=== PATIENT | female | born 1975 | race Caucasian/White ===

== ENCOUNTER 2016-12-25 06:15 | Inpatient (IN) | payer OTHER ==
[2016-12-25] MEDS ORDERED: AMPICILLIN SODIUM 2 GM in NS 100 ML IV ONE (06:22)
[2016-12-25] MEDS ORDERED: OXYTOCIN/RINGERS LACTATE 1,000 ML IV PRN (06:22)
[2016-12-25] MEDS ORDERED: IBUPROFEN 600 MG TAB PO PRN (06:22)
[2016-12-25] MEDS ORDERED: TERBUTALINE SULFATE 1 MG/ML VIAL IV PRN (06:22)
[2016-12-25 07:07] LABS: ABSOLUTE IMMATURE GRANULOCYTES 0.09 10^3/uL (0.00-0.10); ADD DIFF? NO; ADD MORPH? NO; ADD SCAN? NO; ATYPICAL LYMPHOCYTE FLAG 0 (0-99); FRAGMENT RBC FLAG 0 (0-99); HEMOGLOBIN 12.2 g/dL (12.6-16.3); LEFT SHIFT FLG 0 (0-99); LIPEMIA HEMOLYSIS FLAG 90 (0-99); MEAN CELL HEMOGLOBIN 31.4 pg (27.9-34.1); MEAN CELL HEMOGLOBIN CONCENTR. 33.9 g/dL (32.4-36.7); MEAN CELL VOLUME 92.5 fL (81.5-99.8); MEAN PLATELET VOLUME 10.9 fL (8.7-11.7); PLATELET CLUMPS FLAG 0 (0-99); PLATELET COUNT 187 10^3/uL (150-400); RED BLOOD CELL COUNT 3.89 10^6/uL (4.18-5.33); RED CELL DISTRIBUTION WIDTH 13.8 % (11.5-15.2)
[2016-12-25] MEDS ORDERED: LIDOCAINE 1% 30 ML SDV ONE (07:19)
[2016-12-25] MEDS ORDERED: OXYTOCIN 10 UNIT/ML VIAL ONE (07:20)
[2016-12-25] MEDS ORDERED: AMMONIA AROMATIC 1 EACH AMP IH ONE (07:20)
[2016-12-25] MEDS ORDERED: TERBUTALINE SULFATE 1 MG/ML VIAL ONE (07:20)
[2016-12-25] MEDS ORDERED: MISOPROSTOL 200 MCG TAB ONE (07:21)
[2016-12-25] MEDS ORDERED: LR 500 ML IV PRN (07:54)
[2016-12-25] MEDS ORDERED: OXYTOCIN/RINGERS LACTATE 500 ML IV SCH (08:00)
[2016-12-25] MEDS: LR 1,000 ML IV PRN ×2 (08:13→12:15)
[2016-12-25 09:12] LABS: ALANINE AMINOTRANSFERASE 26 IU/L (9-52); ASPARTATE AMINOTRANSFERASE 14 IU/L (14-46); BILIRUBIN,TOTAL 0.4 mg/dL (0.1-1.4); BILIRUBIN-CONJUGATED 0.3 mg/dL (0.0-0.5); BILIRUBIN-UNCONJUGATED 0.1 mg/dL (0.0-1.1); CREATININE 0.5 mg/dL (0.6-1.0); GLOMERULAR FILTRATION RATE > 60; LACTATE DEHYDROGENASE 321 IU/L (313-618); URIC ACID 4.3 mg/dL (2.5-6.8)
--- NOTE | 2016-12-25 09:20 | GHP ---
DATE OF ADMISSION: 12/25/2016 ADMITTING DIAGNOSES: 1. Intrauterine at 39 weeks and 3 days gestation. 2. Small for gestational age (SGA) at 15th percentile with elevated uterine artery umbilical Dopplers. 3. Advanced maternal age. HISTORY OF PRESENT ILLNESS: Patient is a 41-year-old, 2, para 1, 0, 0, 1 at 39 weeks and 3 days with estimated due date 01/08/2017 by last menstrual period 03/24/2016 and confirmed by a 9 week ultrasound. The patient presented yesterday to the office for a routine visit, had a followup growth scan showing an estimated weight at 15th percentile and umbilical artery Dopplers that were abnormally elevated. The patient had an NST in the office and it was reassuring; Category I strip with no decels. She was examined in the office and found to be 3 cm dilated, 80% effaced, and -2 station. Pt was scheduled for an induction of labor today secondary to SGA and abnormal UA dopplers. COURSE: The patient has good care with [facility] , and presented in her 1st trimester. is complicated by advanced maternal age. She did have a quad screen done that was negative. She declined the Trio and Verifi screening. is also complicated by history of depression and anxiety, she is not taking any medications. She does have GBS bacteriuria. The patient was followed throughout this for SGA and growths with Dopplers. They have all been normal except for yesterday where they were abnormally high. The patient did receive a flu shot and Tdap during the . OB HISTORY: In 2012, patient delivered a viable female via vaginal delivery weighing 5 pounds 3 ounces at 39 weeks. She was induced for IUGR and elevated blood pressures. PAST HOSPICE MUSIC THERAPY HISTORY: Age of menarche 14 years. Cycles are regular. Last menstrual period 03/07/2016. The patient denies any history of abnormal Pap smears or exposure to STDs. Both Pap smear and chlamydia/gonorrhea cultures were negative during this . PAST MEDICAL HISTORY: Remarkable for depression, anxiety, migraine headaches. PAST SURGICAL HISTORY: [place] teeth extraction. CURRENT MEDICATIONS: vitamins. ALLERGIES: Tetracyclines and possibly sensitivity to hydrocodone. SOCIAL HISTORY: The patient is and lives with her , Celso, and their daughter, Alba. Patient is part-time employed at [employer]. Denies any alcohol, tobacco or illicit drug use. FAMILY HISTORY: Father with hypertension, diverticulitis. Mother with rheumatoid arthritis and a CVA. Maternal grandmother with diabetes and thyroid disease. LABS: AB positive, antibody negative, RPR nonreactive, rubella immune , hepatitis B surface antigen negative, HIV negative. H and H is 14 and 41 initially and dropped to 12 and 37 in the 3rd trimester. 1st trimester GBS bacteriuria. 1-hour Glucola was normal at 120. Quad screen negative. PHYSICAL EXAMINATION: GENERAL: On admission, the patient is well nourished, well developed, alert, and oriented x3. No apparent distress. CARDIOVASCULAR: Regular rate and rhythm. LUNGS: Clear to auscultation. ABDOMEN: Soft, gravid, nontender ,nondistended, active bowel sounds. PELVIC: The patient was found to be 3 cm, 80% effaced, -2 station. On toco there is a Aategory 1 strip with positive accels, no decels, moderate variability with a baseline of 140 beats per minute. EXTREMITIES: Normal to inspection without calf tenderness or edema. ASSESSMENT: The patient is a 41-year-old, 2, para 1, 0, 0, 1, at 39 and 3 weeks with SULMA 12/29/2016 for an induction of labor secondary to small for gestational age and abnormally elevated umbilical artery Dopplers. PLAN: 1. Admit to labor and delivery for induction of labor. 2. We will start Pitocin per protocol. 3. GBS bacteria. Will treat with antibiotics, ampicillin q 4 hours. 4. The patient is complaining of a headache, mildly elevated blood pressure 140s/80-90s. Will check PIH labs. 5. Epidural upon request. /[id number]/MODL MTDD
[2016-12-25] MEDS: AMPICILLIN SODIUM 1 GM in NS 100 ML IV SCH ×4 (12:15→23:40)
--- NOTE | 2016-12-25 12:36 | OBPROG ---
OBG Progress Note Assessment/Plan: Assessment: 41 y/o @ 39 3/7 wks with SGA at 15% and abnormal UA dopplers, >90% for IOL Plan: Unable to continue Pitocin per protocol secondary to Cat II strip with intermittent late decels and variable decels; resuscitation performed Attempted AROM and head ballottable Will start low dose Pitocin and continue to closely monitor strip GBS bacteriuria, currently being treated with abx-Ampicillin 12/25/16 12:32 Subjective: Pt is doing well, no complaints. No pain yet with irregular ctx's. She desires an epidural. Objective: 12/25/16 06:40 12/25/16 06:40 Patient ABO/Rh AB POSITIVE 12/25/16 06:40 Uric Acid 4.3 mg/dL (2.5-6.8) 12/25/16 06:40 Total Bilirubin 0.4 mg/dL (0.1-1.4) 12/25/16 06:40 Conjugated Bilirubin 0.3 mg/dL (0.0-0.5) 12/25/16 06:40 Unconjugated Bilirubin 0.1 mg/dL (0.0-1.1) 12/25/16 06:40 AST 14 IU/L (14-46) 12/25/16 06:40 ALT 26 IU/L (9-52) 12/25/16 06:40 Lactate Dehydrogenase 321 IU/L (313-618) 12/25/16 06:40 - SVE Dilation (cm): 3 Effacement (%): 80 Station: -2 Current Contraction Pattern: Irregular FHR (bpm): 130 FHR Pattern Variability: Moderate FHR Category: 2 Membranes: Intact ICD10 Worksheet Patient Problems: Problems Problem Status Onset Abnormal ultrasonic finding on screening of mother, antepartum Acute SGA (small for gestational age), , affecting care of mother, antepartum Acute - ICD10 Problem Qualifiers (1) SGA (small for gestational age), , affecting care of mother, antepartum Qualifiers: Fetus number: F Trimester: T
[2016-12-25] MEDS ORDERED: fentaNYL 2MCG/ML/BUP 0.1% RTU 100 ML BAG EP ONE (15:31)
[2016-12-25] MEDS ORDERED: BUPIVACAINE 0.25% 30 ML SDV ONE (15:31)
[2016-12-25] MEDS ORDERED: PHENYLEPHRINE HCL 100 MCG/ML SYR ONE (15:31)
[2016-12-25] MEDS ORDERED: fentaNYL 100 MCG/2 ML INJ ONE ×2 (15:32→18:09)
[2016-12-25] MEDS ORDERED: ONDANSETRON 4 MG/2 ML VIAL IVP PRN ×3 (16:36→20:46)
[2016-12-25] MEDS ORDERED: PHENYLEPHRINE HCL 100 MCG/ML SYR IVP PRN ×2 (16:36→20:46)
--- NOTE | 2016-12-25 16:45 | POSTANESTH ---
Post Anesthetic Evaluation Cardiovascular Status: Normal, Stable, Similar to Pre-Op Cond Respiratory Status: Normal, Stable, Similar to Pre-op Cond. Level of Consciousness/Mental Status: Can Participate in Eval, Alert and Oriented Pain Control: Adequate, Prn Tx Ordered Nausea/Vomiting Control: Adequate, Prn Tx Ordered Complications Possibly Related to Anesthesia: None Noted (Tolerated CSE well, stable, comfortable.)
--- NOTE | 2016-12-25 16:52 | PREANESOB ---
Obstetric Pre-Anesthesia Info - General Info Proposed Procedure: Labor and delivery with pitocin. : 2 Para: 1 WBD: 39 - Info Status: Full Term Monitors: External FHR Baseline (bpm): 135 FHR Pattern: Reassuring - Labor Status Cervical Dilation per last OB SVE: 3 Station per last OB SVE: -2 Pitocin: In Use PIH: No Magnesium Sulfate in Use: No Indications for Labor Analgesia: Induction of Labor, Pain Control Labor Epidural: Proposed Anesthesia ROS: Prior labor epidural. Allergies/Adverse Reactions: Allergy/AdvReac Type Severity Reaction Status Date / Time hydrocodone Allergy Rash Verified 08/11/13 12:57 tetracycline [Tetracycline] Allergy Hives Verified 08/11/13 12:57 Home Medications: Medication Instructions Recorded zofran 4mg 4 mg PO PRN 08/11/13 Visit Medications: Generic Name Dose Route Start Last Admin Trade Name Freq PRN Reason Stop Dose Admin Diphenhydramine HCl 25 - 50 mg 12/25/16 16:36 Benadryl Injection IVP 06/23/17 16:35 Q6HRS PRN Itching Ampicillin Sodium 1 gm/ Sodium 100 mls @ 200 mls/hr 12/25/16 10:23 12/25/16 16:08 Chloride IV 01/24/17 10:22 100 mls Q4H JESSICA Administration Protocol Lactated Ringer's 1,000 mls @ 0 mls/hr 12/25/16 06:22 12/25/16 12:15 Lr IV 06/23/17 06:21 1,000 mls PRN PRN Administration SEE PROTOCOL CONDITIONS Protocol Per Protocol Oxytocin/Lactated Ringer's 1,000 mls @ 150 mls/hr 12/25/16 06:22 Pitocin 20 Units/Lr (Premix) IV PRN PRN Post- bleeding Lactated Ringer's 500 mls @ 500 mls/hr 12/25/16 07:54 Lr IV PRN PRN Maternal Hypotension Oxytocin/Lactated Ringer's 500 mls @ 0 mls/hr 12/25/16 08:00 12/25/16 08:10 Pitocin 30 Units/Lr (Premix) IV 06/23/17 07:59 500 mls CONT JESSICA Administration Protocol Per Protocol Fentanyl/Bupivacaine HCl 100 mls @ 0 mls/hr 12/25/16 17:00 Fentanyl/Bupivacaine/Ns 2 Mcg/Ml 0.1% (Premix EP 01/04/17 16:59 CONT JESSICA Protocol As Directed Lactated Ringer's 500 mls @ 0 mls/hr 12/25/16 17:00 Lr IV 06/23/17 16:59 CONT JESSICA As Directed Ibuprofen 600 mg 12/25/16 06:22 Motrin PO 06/23/17 06:21 Q6HRS PRN post , inflammation Ondansetron HCl 4 mg 12/25/16 16:36 Zofran IVP 06/23/17 16:35 Q4HRS PRN Nausea/Vomiting, Can't Take PO Phenylephrine HCl 100 mcg 12/25/16 16:36 Arnoldo-Synephrine IVP 06/23/17 16:35 .Q2M PRN Hypotension Terbutaline Sulfate 0.25 mg 12/25/16 06:22 Brethine IV 06/23/17 06:21 ONCE PRN Tachysystole Discontinued Medications Generic Name Dose Route Start Last Admin Trade Name Massimoq PRN Reason Stop Dose Admin Ammonia (Aromatic Spirit) Confirm 12/25/16 07:20 Ammonia Aromatic Administered 12/25/16 07:21 Dose 1 each IH .STK-MED ONE Bupivacaine HCl Confirm 12/25/16 15:31 Sensorcaine 0.25% Sdv Administered 12/25/16 15:32 Dose 30 ml .ROUTE .STK-MED ONE Ephedrine Sulfate Confirm 12/25/16 07:20 Ephedrine Sulfate Administered 12/25/16 07:21 Dose 50 mg .ROUTE .STK-MED ONE Fentanyl Confirm 12/25/16 15:32 Sublimaze Administered 12/25/16 15:33 Dose 100 mcg .ROUTE .STK-MED ONE Fentanyl/Bupivacaine HCl Confirm 12/25/16 15:31 Fentanyl/Bupivacaine/Ns 2 Mcg/Ml 0.1% (Premix Administered 12/25/16 15:32 Dose 100 ml EP .STK-MED ONE Ampicillin Sodium 2 gm/ Sodium 110 mls @ 220 mls/hr 12/25/16 06:22 12/25/16 08:11 Chloride IV 12/25/16 06:51 110 mls ONCE ONE Administration Protocol Lidocaine HCl Confirm 12/25/16 07:19 Lidocaine Hcl 1% Administered 12/25/16 07:20 Dose 30 ml .ROUTE .STK-MED ONE Misoprostol Confirm 12/25/16 07:21 Cytotec Administered 12/25/16 07:22 Dose 800 mcg .ROUTE .STK-MED ONE Oxytocin Confirm 12/25/16 07:20 Pitocin Administered 12/25/16 07:21 Dose 40 unit .ROUTE .STK-MED ONE Phenylephrine HCl Confirm 12/25/16 15:31 Arnoldo-Synephrine Administered 12/25/16 15:32 Dose 1,000 mcg .ROUTE .STK-MED ONE Terbutaline Sulfate Confirm 12/25/16 07:20 Brethine Administered 12/25/16 07:21 Dose 1 mg .ROUTE .STK-MED ONE - Anesthesia History Response to Local Anesthetics: Normal Anesthesia & Operative History: No Prior Problems - Social History Substance Use/Abuse: Denies - Focused Exam Blood Pressure: 131/82 Heart Rate: 88 Respiratory Rate: 18 Height/Weight (Nursing): Height 157.48 cm Weight 99.79 kg Physical Exam: Within normal limits. ASA Status: II Labs: 12/25/16 06:40 12/25/16 06:40 Patient ABO/Rh AB POSITIVE 12/25/16 06:40 Uric Acid 4.3 mg/dL (2.5-6.8) 12/25/16 06:40 Total Bilirubin 0.4 mg/dL (0.1-1.4) 12/25/16 06:40 Conjugated Bilirubin 0.3 mg/dL (0.0-0.5) 12/25/16 06:40 Unconjugated Bilirubin 0.1 mg/dL (0.0-1.1) 12/25/16 06:40 AST 14 IU/L (14-46) 12/25/16 06:40 ALT 26 IU/L (9-52) 12/25/16 06:40 Lactate Dehydrogenase 321 IU/L (313-618) 12/25/16 06:40 - Plan Anesthetic Plan: CSE Consent Signed and on Chart: Yes Patient/Guardian Understands and Agrees to Plan: Yes
[2016-12-25] MEDS ORDERED: LR 500 ML IV SCH (17:00)
[2016-12-25] MEDS ORDERED: fentaNYL 2MCG/ML/BUP 0.1% RTU 100 ML EP SCH (17:00)
--- NOTE | 2016-12-25 17:13 | OBPROG ---
OBG Progress Note Assessment/Plan: Assessment: 41 y/o @ 39 3/7 wks with SGA at 15% and abnormal UA dopplers, >90% for IOL Plan: Pitocin at 6 mu/min Cat II strip with intermittent variable decels Pt is s/p epidural AROM attempted again and head still ballottable Will continue to closely monitor strip 12/25/16 17:11 Subjective: Pt is comfortable, s/p epidural Objective: 12/25/16 06:40 12/25/16 06:40 Patient ABO/Rh AB POSITIVE 12/25/16 06:40 Uric Acid 4.3 mg/dL (2.5-6.8) 12/25/16 06:40 Total Bilirubin 0.4 mg/dL (0.1-1.4) 12/25/16 06:40 Conjugated Bilirubin 0.3 mg/dL (0.0-0.5) 12/25/16 06:40 Unconjugated Bilirubin 0.1 mg/dL (0.0-1.1) 12/25/16 06:40 AST 14 IU/L (14-46) 12/25/16 06:40 ALT 26 IU/L (9-52) 12/25/16 06:40 Lactate Dehydrogenase 321 IU/L (313-618) 12/25/16 06:40 Temp Pulse Resp BP Pulse Ox 88 18 131/82 H 12/25/16 16:56 12/25/16 16:56 12/25/16 16:56 - SVE Dilation (cm): 4 Effacement (%): 100 Station: -1 Current Contraction Pattern: Irregular FHR (bpm): 140 FHR Pattern Variability: Moderate FHR Category: 2 Membranes: Intact ICD10 Worksheet Patient Problems: Problems Problem Status Onset Abnormal ultrasonic finding on screening of mother, antepartum Acute SGA (small for gestational age), , affecting care of mother, antepartum Acute - ICD10 Problem Qualifiers (1) SGA (small for gestational age), , affecting care of mother, antepartum Qualifiers: Fetus number: F Trimester: T
[2016-12-25] MEDS ORDERED: CEFAZOLIN 2 GM/DEXTROSE/100 ML BAG IV ONE (17:48)
--- NOTE | 2016-12-25 17:56 | OBPROG ---
OBG Progress Note Assessment/Plan: Assessment: 41 y/o @ 39 3/7 wks with SGA at 15% and abnormal UA dopplers, >90% for IOL Plan: FHTs - Cat II strip with Pitocin at 10 mu/min; now having repetitive variable decels that are getting deeper with otilio 90 bpm resuscitation performed - oxygen applied, IVFs wide open and Pitocin turned off Pt reexamined and no cervical change noted Discussed that there is no cervical change and we are unable to increase Pitocin at this time; recommend we proceed with PCS secondary to intolerance to labor Consents obtained; R/B/A reviewed with pt including but not limited to bleeding , infection and damage to surrounding organs Abx collections director to OR 12/25/16 17:51 Subjective: Pt with no complaints Objective: 12/25/16 06:40 12/25/16 06:40 Patient ABO/Rh AB POSITIVE 12/25/16 06:40 Uric Acid 4.3 mg/dL (2.5-6.8) 12/25/16 06:40 Total Bilirubin 0.4 mg/dL (0.1-1.4) 12/25/16 06:40 Conjugated Bilirubin 0.3 mg/dL (0.0-0.5) 12/25/16 06:40 Unconjugated Bilirubin 0.1 mg/dL (0.0-1.1) 12/25/16 06:40 AST 14 IU/L (14-46) 12/25/16 06:40 ALT 26 IU/L (9-52) 12/25/16 06:40 Lactate Dehydrogenase 321 IU/L (313-618) 12/25/16 06:40 Temp Pulse Resp BP Pulse Ox 88 18 131/82 H 12/25/16 16:56 12/25/16 16:56 12/25/16 16:56 - SVE Dilation (cm): 4 Effacement (%): 100 Station: -1 Current Contraction Pattern: Irregular FHR (bpm): 140 FHR Pattern Variability: Moderate FHR Category: 2 Membranes: Intact ICD10 Worksheet Patient Problems: Problems Problem Status Onset Abnormal ultrasonic finding on screening of mother, antepartum Acute SGA (small for gestational age), , affecting care of mother, antepartum Acute - ICD10 Problem Qualifiers (1) SGA (small for gestational age), , affecting care of mother, antepartum Qualifiers: Fetus number: F Trimester: T
[2016-12-25] MEDS ORDERED: ONDANSETRON 4 MG/2 ML VIAL ONE ×2 (18:10)
[2016-12-25] MEDS ORDERED: morphINE PF 5 MG/10 ML INJ ONE (18:10)
[2016-12-25] MEDS ORDERED: OXYTOCIN 100 UNITS/10 ML VIAL ONE (18:31)
[2016-12-25 18:34] LABS: PH VENOUS CORD BLOOD 7.31 (7.20-7.42)
[2016-12-25] MEDS ORDERED: PROMETHAZINE HCL 25 MG/ML INJ IVP PRN (19:10)
[2016-12-25] MEDS ORDERED: HYDROCODONE/APAP 5/325 TAB PO PRN (19:10)
[2016-12-25] MEDS ORDERED: LACTULOSE 20 GM/30 ML UDCUP PO PRN (19:10)
[2016-12-25] MEDS ORDERED: BISACODYL 10 MG SUPP PR PRN (19:10)
[2016-12-25] MEDS ORDERED: POLYETHYLENE GLYCOL 3350 17 GM PKT PO PRN (19:10)
[2016-12-25] MEDS ORDERED: DOCUSATE SODIUM 100 MG CAP PO PRN (19:10)
[2016-12-25] MEDS ORDERED: SIMETHICONE 80 MG TAB CHEW PO PRN (19:10)
[2016-12-25] MEDS ORDERED: MAGNESIUM HYDROXIDE 30 ML UDCUP PO PRN (19:10)
--- NOTE | 2016-12-25 19:24 | OBPROC ---
- Delivery Pre-op Diagnoses: intolerance to labor Post-op Diagnoses: intolerance to labor Procedure: Primary Surgeon: Maribell Hernandez Insulation Board Head Saw Operator: Sydnee Monsalve Anesthesiologist: Primo Ricci Anesthesia: Epidural Complications: None Findings: Grossly normal appearing uterus, tubes and ovaries Specimen(s)/Path: Placenta IV Fluid (ml): 2,500 EBL: 800cc UO: 400 cc clear urine at end of procedure Cord Gases: Cord Gases Cord Blood PCO2 TNP 12/25/16 18:27 Cord Base Excess TNP 12/25/16 18:27 Cord ABG pH TNP 12/25/16 18:27 Cord VBG pH 7.31 (7.20-7.42) 12/25/16 18:27 - [place] Info Infant A Delivery Date: 12/25/16 Delivery Time: 18:17 Sex of Infant: Male Score (1 Min): 8 Score (5 Min): 9
[2016-12-25] MEDS ORDERED: KETOROLAC 30 MG/1 ML SDV ONE (19:37)
--- NOTE | 2016-12-25 19:40 | GOP ---
DATE OF OPERATION: 12/25/2016 SURGEON: Maribell Hernandez DO ZMT OPERATOR: Sydnee Monsalve CNM. ANESTHESIA: Epidural. PREOPERATIVE DIAGNOSIS: 1. Intrauterine at 37 weeks and 3 days. 2. Small for gestational age at 15th percentile. 3. Abnormally elevated uterine artery Dopplers. 4. intolerance to labor. POSTOPERATIVE DIAGNOSIS: 1. Intrauterine at 37 weeks and 3 days. 2. Small for gestational age, 15th percentile. 3. Abnormally elevated uterine artery Dopplers. 4. intolerance to labor. PROCEDURE PERFORMED: Primary low-transverse section. FINDINGS: Grossly normal-appearing uterus, tubes, and ovaries bilaterally. SPECIMENS: Placenta. ESTIMATED BLOOD LOSS: 800 cc. INDICATIONS: Patient is a 41-year-old, 2, para 1-0-0-1 at 37-3/7 weeks who presents for induction of labor secondary to SGA, estimated weight 15th percentile and abnormally elevated uterine artery Dopplers. Induction was started with Pitocin, and there was noted to be intolerance to labor with late decels and then repetitive variable decels. DESCRIPTION OF PROCEDURE: Patient was taken to the operating room, where anesthesia was obtained without difficulty. Patient was prepped and draped usual sterile fashion, placed in the supine position with the tilt. Skin incision was then made with a knife, and extended to the fascia with the Bovie. Fascia was then nicked and extended bilaterally with Platt scissors. The fascia was then dissected off the rectus muscles bluntly, and in the midline. The peritoneum was elevated with hemostats, entered bluntly and extended bilaterally. Bladder blade was then placed. Visceroperitoneum was then entered with the Metzenbaum scissors. Bladder flap created using both sharp and blunt dissection. The bladder blade was then advanced. Uterus was then incised with a knife in a horizontal fashion. Lower uterine segment extended anteriorly and posteriorly. The baby was then delivered in cephalic presentation without difficulty. The cord was then clamped x2 and ligated. Baby was handed off to the nurse practitioner. It is a baby boy. Apgars were 8 and 9. Cord gases were obtained. The placenta was then delivered spontaneously intact and sent to pathology. Uterus was exteriorized and the cavity was cleaned with moist sponges. The uterine incision was then closed with a running stitch of 0 Vicryl. Hemostasis was noted. A second imbricating layer was then done with 0 Vicryl suture. There was noted to be some oozing from the uterine incision. A [id number] stitch of 0 Vicryl was used and hemostasis was achieved. The uterus was then placed back into the abdomen without difficulty. The gutters were then cleansed of free blood and clots. We did visualize the ovary and tubes; they appear grossly normal-appearing. The incision was visualized again and surgical Bishnu was placed over the incision and hemostasis was noted. The rectus muscles were then approximated using 2-0 Vicryl. The fascia was then closed with 0 Vicryl running suture. Hemostasis was noted. The skin was then closed with a 4-0 Vicryl on a Yogi needle. The patient tolerated procedure well. No complications. Sponge, lap and instrument count correct x2. The patient did receive 2 g of Ancef prior to the incision, as well as 3 doses of ampicillin for GBS prophylaxis. The patient was then taken out of supine position, taken to recovery room in stable condition. COMPLICATIONS: None. INTRAVENOUS FLUIDS: 2500 cc lactated Ringers. URINE OUTPUT: 400 cc of clear urine at the end the procedure. /[id number]/MODL MTDD
[2016-12-25] MEDS: KETOROLAC 30 MG/1 ML SDV IVP PRN (19:55)
[2016-12-25] MEDS ORDERED: MEPERIDINE 25 MG/ML SYR IVP PRN (20:46)
[2016-12-25] MEDS ORDERED: fentaNYL 100 MCG/2 ML INJ IVP PRN (20:46)
[2016-12-25] MEDS ORDERED: NALOXONE HCL 0.4 MG/ML INJ IVP PRN ×2 (20:46)
[2016-12-25] MEDS ORDERED: HYDROmorphONE/DILAUDID 1 MG/ML SYR IVP PRN (20:46)
[2016-12-25] MEDS: SENNOSIDES/DOCUSATE SODIUM TAB PO SCH (22:16)
[2016-12-26] MEDS: KETOROLAC 30 MG/1 ML SDV IVP PRN ×3 (01:56→14:08)
[2016-12-26] MEDS: AMPICILLIN SODIUM 1 GM in NS 100 ML IV SCH ×2 (02:48→06:48)
[2016-12-26] MEDS: SENNOSIDES/DOCUSATE SODIUM TAB PO SCH ×2 (10:20→22:46)
[2016-12-26] MEDS: ACETAMINOPHEN/CODEINE 300/30MG TAB PO PRN ×2 (17:06→23:10)
--- NOTE | 2016-12-26 17:44 | SOAPPROG ---
SOAP Progress Note Assessment/Plan: Assessment: pod# 1 s/p PLTCS for intolerance of labor and arrest of dilation anemia breast feeding Plan: routine post operative and post care iron 12/26/16 17:42 Subjective: patient is doing well. pain is well controlled. normal lochia. breast feeding is going well. denies headache and changes in vision. stood at the bedside this am. voiding without difficulty. Objective: Vital Signs Temp Pulse Resp BP Pulse Ox 37.1 C 97 18 113/77 93 12/26/16 12:00 12/26/16 12:00 12/26/16 12:00 12/26/16 12:00 12/26/16 16:11 Laboratory Results 12/26/16 05:30 12/25/16 06:40 12/25/16 12/26/16 12/27/16 05:59 05:59 05:59 Intake Total 5000 Output Total 2125 960 Balance 2875 -960 Physical Exam - Physical Exam General Appearance: WD/WN, alert, no apparent distress Respiratory: chest non-tender, lungs clear, normal breath sounds Cardiac/Chest: normal peripheral pulses, regular rate, rhythm Abdomen: normal bowel sounds, non-tender, soft, other (fundus firm and non tender) Skin: normal color, warm/dry Extremities: normal range of motion, non-tender, normal inspection, normal capillary refill Neuro/Psych: no motor/sensory deficits, alert, normal mood/affect, oriented x 3 ICD10 Worksheet Patient Problems: Problems Problem Status Onset Abnormal ultrasonic finding on screening of mother, antepartum Acute SGA (small for gestational age), , affecting care of mother, antepartum Acute
[2016-12-26] MEDS: IBUPROFEN 600 MG TAB PO PRN (20:06)
[2016-12-26] MEDS: IRON POLYSAC/IRON HEME 28 MG TAB PO SCH (20:07)
[2016-12-27] MEDS: IBUPROFEN 600 MG TAB PO PRN ×4 (02:10→21:16)
[2016-12-27] MEDS: ACETAMINOPHEN/CODEINE 300/30MG TAB PO PRN ×3 (05:02→18:27)
--- NOTE | 2016-12-27 09:46 | SOAPPROG ---
SOAP Progress Note Assessment/Plan: Assessment:nipples intact, ff@u scant rubra lochia passing gas pain well managed walking Plan:expectant mananement po day 2 12/27/16 09:44 Subjective: doing well denies difficulties. + passing gas o difficulties voiding, better today Objective: Vital Signs Temp Pulse Resp BP Pulse Ox 36.8 C 96 18 132/86 H 94 12/27/16 03:00 12/27/16 03:00 12/27/16 03:00 12/27/16 03:00 12/27/16 03:00 Laboratory Results 12/26/16 05:30 12/25/16 06:40 12/26/16 12/27/16 12/28/16 05:59 05:59 05:59 Intake Total 5000 400 Output Total 2341 0279 Balance 2875 -4480 - Time Spent With Patient Time Spent With Patient: 15 minutes - Pending Discharge Pending Discharge Within 24 Hours: Yes Pending Discharge Date: 12/28/16 Pending Discharge Time: 11:00 Physical Exam - Physical Exam General Appearance: WD/WN, alert, no apparent distress Respiratory: lungs clear Cardiac/Chest: regular rate, rhythm Abdomen: normal bowel sounds, other (ff@U) Pelvic Exam: vaginal bleeding (scant rubra lochia) Skin: normal color, warm/dry Extremities: normal range of motion Neuro/Psych: no motor/sensory deficits, alert, normal mood/affect, oriented x 3 ICD10 Worksheet Patient Problems: Problems Problem Status Onset Abnormal ultrasonic finding on screening of mother, antepartum Acute SGA (small for gestational age), , affecting care of mother, antepartum Acute
[2016-12-27] MEDS: IRON POLYSAC/IRON HEME 28 MG TAB PO SCH ×2 (09:52→21:17)
[2016-12-27] MEDS: SENNOSIDES/DOCUSATE SODIUM TAB PO SCH ×2 (10:58→22:53)
[2016-12-28] MEDS: ACETAMINOPHEN/CODEINE 300/30MG TAB PO PRN ×4 (00:26→19:44)
[2016-12-28] MEDS: IBUPROFEN 600 MG TAB PO PRN ×4 (03:07→23:36)
--- NOTE | 2016-12-28 08:40 | SOAPPROG ---
SOAP Progress Note Assessment/Plan: Assessment:nipples intact, ff@u scant rubra lochia passing gas pain well managed walking voiding without difficulty Plan:discharge to home with instructions. pelvic rest, pain management, depression, ss infection, hydration, contraception, , fu 2 weeks and 6 weeks. discussed no driving x 2 weeks. 12/27/16 09:44 12/28/16 08:38 Subjective: Dong well. Denies difficulties. well. pain well managed. ready to go home Objective: Vital Signs Temp Pulse Resp BP Pulse Ox 36.7 C 94 16 137/66 H 93 12/28/16 07:51 12/28/16 07:51 12/28/16 07:51 12/28/16 07:51 12/28/16 07:51 Laboratory Results 12/26/16 05:30 12/25/16 06:40 12/27/16 12/28/16 12/29/16 05:59 05:59 05:59 Intake Total 400 Output Total 2460 -2059 - Time Spent With Patient Time Spent With Patient: 15 minutes - Pending Discharge Pending Discharge Date: 12/28/16 Pending Discharge Time: 11:00 Physical Exam - Physical Exam General Appearance: WD/WN, alert, no apparent distress Cardiac/Chest: regular rate, rhythm Abdomen: normal bowel sounds, other (FF@u) Pelvic Exam: vaginal bleeding (scant rubra lochia) Skin: normal color, warm/dry Extremities: normal range of motion Neuro/Psych: no motor/sensory deficits, alert, normal mood/affect, oriented x 3 ICD10 Worksheet Patient Problems: Problems Problem Status Onset Abnormal ultrasonic finding on screening of mother, antepartum Acute SGA (small for gestational age), , affecting care of mother, antepartum Acute
[2016-12-28] MEDS: IRON POLYSAC/IRON HEME 28 MG TAB PO SCH ×2 (11:17→22:22)
[2016-12-28] MEDS: SENNOSIDES/DOCUSATE SODIUM TAB PO SCH ×2 (12:03→23:39)
[2016-12-28 19:59] VITALS: O2SAT 95
[2016-12-29] MEDS: ACETAMINOPHEN/CODEINE 300/30MG TAB PO PRN ×2 (02:05→08:56)
[2016-12-29] MEDS: IBUPROFEN 600 MG TAB PO PRN ×2 (05:22→11:27)
--- NOTE | 2016-12-29 07:59 | SOAPPROG ---
SOAP Progress Note Assessment/Plan: Assessment:nipples intact, ff@u scant rubra lochia passing gas pain well managed walking voiding without difficulty needing some assistance using ss consult daily has a plan for feeding Plan:discharge to home with instructions. pelvic rest, pain management, depression, ss infection, hydration, contraception, , fu 1 week 2 weeks 4 weeks and 6 weeks. discussed no driving x 2 weeks. 12/27/16 09:44 12/28/16 08:38 12/29/16 07:59 Subjective: Patient ready to go home today. Continuing to have difficulty with . Has a plan though. Will have consult today. Incision weeping poc change pad routinely Objective: Vital Signs Temp Pulse Resp BP Pulse Ox 36.1 C 96 16 149/91 H 95 12/28/16 19:59 12/28/16 19:59 12/28/16 19:59 12/28/16 19:59 12/28/16 19:59 Laboratory Results 12/26/16 05:30 12/25/16 06:40 Physical Exam - Physical Exam General Appearance: WD/WN, alert, no apparent distress Respiratory: chest non-tender, lungs clear, normal breath sounds Cardiac/Chest: regular rate, rhythm Abdomen: normal bowel sounds, other (FF@u) Pelvic Exam: vaginal bleeding (scant rubra lochia) Skin: normal color, warm/dry Extremities: swelling (1+ bilaterally), Rachael's sign (negative bilaterally) Neuro/Psych: no motor/sensory deficits, alert, normal mood/affect, oriented x 3 ICD10 Worksheet Patient Problems: Problems Problem Status Onset for non reassuring fetus Acute
[2016-12-29] MEDS: IRON POLYSAC/IRON HEME 28 MG TAB PO SCH (08:56)
[2016-12-29 09:40] VITALS: BP 142/90; PULSE 86; RESP 18; TEMP 98.6
[2016-12-29 09:48] LABS: % IMMATURE GRANULYOCYTES 0.7 % (0.0-1.1); ABSOLUTE IMMATURE GRANULOCYTES 0.04 10^3/uL (0.00-0.10); ADD DIFF? NO; ADD MORPH? NO; ADD SCAN? NO; ATYPICAL LYMPHOCYTE FLAG 10 (0-99); FRAGMENT RBC FLAG 0 (0-99); HEMATOCRIT 32.9 % (38.0-47.0); HEMOGLOBIN 10.7 g/dL (12.6-16.3); LEFT SHIFT FLG 0 (0-99); LIPEMIA HEMOLYSIS FLAG 80 (0-99); MEAN CELL HEMOGLOBIN 31.6 pg (27.9-34.1); MEAN CELL HEMOGLOBIN CONCENTR. 32.5 g/dL (32.4-36.7); MEAN CELL VOLUME 97.1 fL (81.5-99.8); MEAN PLATELET VOLUME 9.9 fL (8.7-11.7); PLATELET CLUMPS FLAG 10 (0-99); PLATELET COUNT 214 10^3/uL (150-400); RED BLOOD CELL COUNT 3.39 10^6/uL (4.18-5.33); RED CELL DISTRIBUTION WIDTH 14.1 % (11.5-15.2)
[2016-12-29 10:11] LABS: ALANINE AMINOTRANSFERASE 47 IU/L (9-52); ASPARTATE AMINOTRANSFERASE 43 IU/L (14-46); BILIRUBIN,TOTAL 0.5 mg/dL (0.1-1.4); BILIRUBIN-CONJUGATED 0.4 mg/dL (0.0-0.5); BILIRUBIN-UNCONJUGATED 0.1 mg/dL (0.0-1.1); CREATININE 0.5 mg/dL (0.6-1.0); GLOMERULAR FILTRATION RATE > 60; LACTATE DEHYDROGENASE 413 IU/L (313-618); URIC ACID 4.6 mg/dL (2.5-6.8)
[2016-12-29] MEDS: SENNOSIDES/DOCUSATE SODIUM TAB PO SCH (10:25)
== END 2016-12-29 13:30 | disposition home or self-care (01) | DRG 765 ==
LOC: FLD 06:15 → FOB 20:15
PROVIDERS: ADMIT Obstetrics & Gynecology; ATTEND Obstetrics & Gynecology
PROC: 3E033VJ Introduction of Other Hormone into Peripheral Vein, Percutaneous Approach (ICD-10-PCS; principal; 2016-12-25)
PROC: 10D00Z1 Extraction of Products of Conception, Low, Open Approach (ICD-10-PCS; principal; 2016-12-25)
DX: O76 Abnormality in fetal heart rate and rhythm complicating labor and delivery (principal); O36.5930 Maternal care for other known or suspected poor fetal growth, third trimester, not applicable or unspecified; O99.824 Streptococcus B carrier state complicating childbirth; Z37.0 Single live birth; Z3A.39 39 weeks gestation of pregnancy
CPT/HCPCS: J0290; J0690; J1885; J2274; J2370; J2405; J2590; J3010; J3105